=== PATIENT | female | born 1950 | race Caucasian/White ===

== ENCOUNTER 2022-04-09 12:45 | Emergency (ER) | payer MEDICARE, OTHER ==
[~2022-04-09] VITALS: Ht 152.4 cm; Wt 57.2 kg
[2022-04-09] MEDS ORDERED: PIPERACILLIN SODIUM/TAZOBACTAM 3.375 G in IV DEXTROSE 5% 50 ML IV ONE (13:00)
[2022-04-09] MEDS ORDERED: IV NORMAL SALINE 1000 ML BAG IV ONE (13:00)
[2022-04-09] MEDS ORDERED: VANCOMYCIN IV 1,000 MG in IV DEXTROSE 5% 250 ML IV ONE (13:00)
[2022-04-09 13:13] LABS: HEMATOCRIT 30.3 % (31.2-41.9); MEAN CORPUSCULAR HEMOGLOBIN 29.6 uug (24.7-32.8); MEAN CORPUSCULAR VOLUME 91.2 fL (75.5-95.3); PLATELET COUNT (AUTO) 245 K/uL (179-408)
[2022-04-09 13:33] LABS: *BILIRUBIN,URIN NEGATIVE (NEGATIVE); *BLOOD, URINE 2+ (NEGATIVE); *CLARITY,URINE CLEAR (CLEAR); *COLOR,URINE YELLOW (YELLOW); *KETONES,URINE NEGATIVE (NEGATIVE); *UROBILINOGEN,URINE 0.2 E.U./dl (NORMAL); LEUKOCYTE ESTERASE ,URINE NEGATIVE (NEGATIVE); NITRITE, URINE NEGATIVE (NEGATIVE); UGLUCOSE NEGATIVE (NEGATIVE)
[2022-04-09 13:35] LABS: ALANINE AMINOTRANSFERASE < 6 U/L (14-59); ALKALINE PHOSPHATASE 79 U/L (50-136); ASPARTATE AMINOTRANSFERASE 10 U/L (15-37); BILIRUBIN,DIRECT 0.2 mg/dL (0.0-0.2); BILIRUBIN,TOTAL 0.8 mg/dL (0.2-1.0); CARBON DIOXIDE 38 mmol/L (21-32); CHLORIDE 93 mmol/L (98-107); CREATININE 0.8 mg/dL (0.6-1.3); GLUCOSE 134 mg/dL (74-106); TOTAL PROTEIN, SERUM 8.1 g/dL (6.4-8.2); UREA NITROGEN, BLOOD 64 mg/dL (7-18)
[2022-04-09] MEDS ORDERED: IV NORMAL SALINE 250 ML IV ONE (13:36)
[2022-04-09] MEDS ORDERED: SWABABLE VALVE TRANSFER SET EA MC ONE (13:36)
[2022-04-09] MEDS ORDERED: IOHEXOL 350 100 ML INFUS..BTL ONE (13:36)
[2022-04-09 13:37] LABS: POTASSIUM 2.7 mmol/L (3.5-5.1)
[2022-04-09] MEDS ORDERED: MAGNESIUM SULFATE/D5W 100 ML IV SCH (13:45)
[2022-04-09] MEDS ORDERED: CHLO473M3 PO (13:53)
[2022-04-09] MEDS ORDERED: ACET-2154 GT ×2 (13:53)
[2022-04-09] MEDS ORDERED: BISA10SU61 RC (13:53)
[2022-04-09] MEDS ORDERED: RISP0.5T5 GT (13:53)
[2022-04-09] MEDS ORDERED: NA P133E RC (13:53)
[2022-04-09] MEDS ORDERED: OMEP40CA21 GT (13:53)
[2022-04-09] MEDS ORDERED: LACT10SO3 GT (13:53)
[2022-04-09] MEDS ORDERED: DOCU-141 PO (13:53)
[2022-04-09] MEDS ORDERED: OXYC-128 GT (13:53)
[2022-04-09] MEDS ORDERED: MELA3TAB41 GT (13:53)
[2022-04-09] MEDS ORDERED: GLIP5TAB13 GT (13:53)
[2022-04-09] MEDS ORDERED: CHOL1LIQ MC (13:53)
[2022-04-09] MEDS ORDERED: ACET-73 GT (13:53)
[2022-04-09] MEDS ORDERED: CARB1TAB21 GT ×2 (13:53)
[2022-04-09] MEDS ORDERED: MAGN400O6 GT (13:53)
[2022-04-09] MEDS ORDERED: CYAN100T44 GT (13:53)
[2022-04-09] MEDS ORDERED: BENZ0.5T43 GT (13:53)
[2022-04-09] MEDS ORDERED: EPOE1VIA6 IJ (13:53)
[2022-04-09] MEDS ORDERED: CA C1TAB71 GT (13:53)
[2022-04-09 14:01] LABS: BACTERIA,URINE FEW /HPF (NONE SEEN); RBC,URINE 20-50 /HPF (0-3); SQUAMOUS EPITHELIAL CELL,UR FEW /HPF (NONE SEEN)
[2022-04-09] MEDS ORDERED: POTASSIUM CHLORIDE 50 ML ONE (14:10)
[2022-04-09] MEDS ORDERED: PIPERACILLIN/TAZOBACTAM/D5W 50 ML IV ONE (14:10)
[2022-04-09] MEDS: POTASSIUM CHLORIDE 50 ML IV SCH ×5 (14:18→17:25)
[2022-04-09] MEDS ORDERED: CLINDAMYCIN PHOSPHATE IV 600 MG in IV DEXTROSE 5% 100 ML IV ONE (14:45)
--- NOTE | 2022-04-09 15:10 | NUR ---
Spoke with Machelle from [facility] to page Dr. Esqueda RE: this patient.
[2022-04-09] MEDS ORDERED: CLINDAMYCIN 600 MG PIGGYBACK**ER OMNI IV ONE (16:02)
[2022-04-09] MEDS ORDERED: POTASSIUM CHLORIDE 150 ML ONE (16:02)
--- NOTE | 2022-04-09 17:00 | NUR ---
PATIENT TO BE TRANSFERED BACK TO [facility] ([facility]). PT TO BE TRANSFERED TO [facility] WITH IVS IN PLACE. 20G LEFT HAND, 20G RIGHT FA. PATEL CATHETER TO BE REMOVED.
[2022-04-09] MEDS ORDERED: MORPHINE SULFATE 2 MG/1 ML DISP.SYRIN IV ONE ×2 (17:30→21:15)
[2022-04-09] MEDS ORDERED: VANCOMYCIN IV 200 ML ONE (17:46)
[2022-04-09] MEDS ORDERED: MORPHINE SULFATE 2 MG/1 ML DISP.SYRIN ONE ×2 (17:46→21:14)
[2022-04-09 18:10] LABS: ABG BASE EXCESS 11.3 mmol/L; ABG HCO3 34.9 mmol/L; ABG PH 7.538 (7.350-7.450); ABG PO2 82.6 mmHg (75.0-100.0); ABG SITE RIGHT RADIAL; ABG TOTAL HEMOGLOBIN 9.6 G/dL (12.0-16.0); COHb 0.3 % (0.5-1.5); MetHb 0.2 % (0.0-1.5); O2Hb 96.2 % (94.0-97.0)
--- NOTE | 2022-04-09 19:00 | NUR ---
1900 PATEL CATHETER REMOVED PER MD ORDER. iv ON LEFT OUTER FA REMOVED, SITE SECURED WITH PRESSURE DRESSIG.
--- NOTE | 2022-04-09 19:24 | NUR ---
per day jimbo greenberg plan is for pt to go back to the group home and be placed on hospice care. pt is currently connected to a vent via trach. I called respiratory therapy to have the pt placed on 2 liters trach collar in preparation for tr to the group home.
--- NOTE | 2022-04-09 19:30 | NUR ---
DAMIEN FAX NUMBER ([facility]) [phone]
--- NOTE | 2022-04-09 19:34 | NUR ---
pts son raúl is here he is clarifying the she is dnr dni and does not want a vent on the pt and confirms that she will go back to the alf on hospice care. he states his will be on his way here.
--- NOTE | 2022-04-09 19:37 | NUR ---
spoke with sondra at [facility] she is requesting clinicals and face sheet on the pt to be faxed to [phone]. call back number is [phone]
--- NOTE | 2022-04-09 19:41 | NUR ---
19:29 - PATIENT WAS ON A RUFF VENT, CALLED TO ER TO TAKE PATIENT OFF VENT NICKIE; I SPOKE WITH AND ALSO INFORMED DR KHAN PT WAS COMING OFF VENT, PT PLACED ON O2 @ 5L/M VIA TRACH COLLAR, @ 19:30; HR 92, RR20 SAT 100%, ALSO SON WAS THERE AND EXPLAINED, SHE IS OFF VENT, AND ON 5L/M VIA TRACH COLLAR. Markel BENNETT [employer] Addendum: 04/09/22 at 1945 by MARA BENNETT RT Amended: Links added.
--- NOTE | 2022-04-09 19:47 | NUR ---
requested documents were faxed to [facility].
--- NOTE | 2022-04-09 19:55 | NUR ---
call to [facility] states 75 to 90 minutes for transport back to her custodial.
--- NOTE | 2022-04-09 20:31 | NUR ---
heather from [facility] called back to confirm eta on transport.
--- NOTE | 2022-04-09 22:07 | NUR ---
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 pt will be transported to her [facility] on hospice care. pt son and daughter at bedside aware of transport. pt is being transported on trach colloar and with piv in place.
--- NOTE | 2022-04-09 22:20 | NUR ---
called to [facility] spoke with denise she is aware the pt is coming back to the facility.
--- NOTE | 2022-04-09 22:33 | NUR ---
pt transported back to [facility] by [facility].
[2022-04-09 22:35] VITALS: BP 110/62
== END 2022-04-09 22:36 ==
LOC: ER 12:45
DX: K94.22 Gastrostomy infection (principal); A41.9 Sepsis, unspecified organism; R65.21 Severe sepsis with septic shock; Y83.3 Surgical operation with formation of external stoma as the cause of abnormal reaction of the patient, or of later complication, without mention of misadventure at the time of the procedure; Z66 Do not resuscitate; E87.6 Hypokalemia; J96.10 Chronic respiratory failure, unspecified whether with hypoxia or hypercapnia; Z88.7 Allergy status to serum and vaccine; G20 Parkinson's disease; F02.80 Dementia in other diseases classified elsewhere, unspecified severity, without behavioral disturbance, psychotic disturbance, mood disturbance, and anxiety; I25.10 Atherosclerotic heart disease of native coronary artery without angina pectoris; K21.9 Gastro-esophageal reflux disease without esophagitis; C50.911 Malignant neoplasm of unspecified site of right female breast; L89.151 Pressure ulcer of sacral region, stage 1; J81.1 Chronic pulmonary edema; K94.23 Gastrostomy malfunction
CPT/HCPCS: 99291; 74177; 96365; 96367; 96366; 71045; 96375; 80076; 80048; 81001; 83880; 85025; 84145; 85730; 86850; 86900; 86901; 87040 ×2; 87086; 84484; 36415; 93005; 96368; 96376; 83605; 36600 ×2; J3490 ×2; Q9967; J2543; J3480 ×2; J3370; J2270 ×2; J7040; A4663